=== PATIENT | female | born 1995 | race Caucasian/White ===

== ENCOUNTER 2016-08-06 16:28 | Emergency (ER) | payer OTHER ==
[~2016-08-06] VITALS: Wt 85.0 kg
[2016-08-06] MEDS ORDERED: ACET325T33 PO (16:56)
[2016-08-06] MEDS ORDERED: CYCL-319 PO (16:56)
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
== END 2016-08-06 16:55 | disposition home or self-care (01) ==
LOC: E/R 16:28
DX: S29.012A Strain of muscle and tendon of back wall of thorax, initial encounter (principal); Y04.0XXA Assault by unarmed brawl or fight, initial encounter
CPT/HCPCS: 99283

== ENCOUNTER 2017-04-01 18:34 | Emergency (ER) | payer OTHER ==
[~2017-04-01] VITALS: Ht 157.5 cm; Wt 94.0 kg
[~2017-04-01 18:34] MED LIST: ACET325T33 PO; CYCL-319 PO
[2017-04-01 18:35] VITALS: Ht 157.5 cm; Wt 94.0 kg
[2017-04-01] MEDS ORDERED: IBUPROFEN 600 MG TAB PO ONE (20:30)
--- NOTE | 2017-04-01 21:29 | RADRPT ---
PROCEDURE: XR Hand. CLINICAL INDICATION: Blunt trauma at the ulnar aspect of the hand with injury. TECHNIQUE: Three views of the left hand were obtained. COMPARISON: None available. FINDINGS: There is a comminuted and mildly displaced fracture at the base of the fifth metacarpal t hat extends to the carpometacarpal articular surface. There is edema within the surrounding soft ti ssues. No additional acute fracture or dislocation is identified. The osseous mineralization is w ithin normal limits. IMPRESSION: 1. Comminuted fracture at the base of the fifth metacarpal that extends to the carpometacarpal rui cular surface with associated surrounding soft tissue edema. RPTAT: HLBP .Los Parra MD, Date Time Electronically viewed and signed by .Los Parra MD, MD on 04/01/2017 21:28 .P/
[2017-04-01] MEDS ORDERED: IBUP400T22 PO (22:26)
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
[2017-04-01 22:55] VITALS: BP 110/63; PULSE 72; RESP 18; TEMP 99.3
== END 2017-04-01 22:56 | disposition home or self-care (01) ==
LOC: FTE 18:34
DX: S69.92XA Unspecified injury of left wrist, hand and finger(s), initial encounter (principal); W22.8XXA Striking against or struck by other objects, initial encounter; Y92.9 Unspecified place or not applicable
CPT/HCPCS: 29125; 73130; Z7502; Z7610